=== PATIENT | female | born 1950 | race Caucasian/White ===

== ENCOUNTER 2017-10-04 21:23 | Day surgery (SDC) | payer OTHER ==
[~2017-10-04] VITALS: Ht 160 cm; Wt 59.5 kg
[~2017-10-04 21:23] MED LIST: AMOXICILLIN500 M1 PO; CHERATUSSIN AC473 ML PO; CYMBALTA60 MG PO; METFORMIN HCL500 MG PO; MUCINEX DM ER1 EACH PO; NEURONTIN600 MG PO; NORTRIPTYLINE HCL; XANAX0.5 MG PO; ZYRTEC; lovastatin; nortriptyline; simvastatin
[2017-10-04 22:00] LABS: BASOPHIL (%) 0.4 % (0-1); EOSINOPHIL (%) 0.1 % (0-5); HEMATOCRIT 26.8 % (36.0-46.0); HEMOGLOBIN 8.9 G/DL (11.9-15.5); IMMATURE GRANULOCYTE (%) 0.4 % (0.0-0.7); LYMPHOCYTE (%) 19.4 % (15-42); LYMPHOCYTE COUNT 1.4 K/uL (1.0-2.8); MCH 32.5 PG (29.0-34.0); MCHC 33.2 G/DL (30.0-36.0); MCV 97.8 FL (83-99); MONOCYTE (%) 6.1 % (3-12); MONOCYTE COUNT 0.4 K/uL (0-0.8); NEUTROPHIL (%) 73.6 % (45-76); NEUTROPHIL COUNT 5.1 K/uL (1.8-6.4); PLATELET COUNT 231 K/uL (156-360); RBC DIS.WIDTH-CV 13.2 % (11.8-14.6); RBC DIS.WIDTH-SD 47.2 % (39-53); RED BLOOD COUNT 2.74 M/uL (3.80-5.20)
[2017-10-04 22:04] LABS: CHLORIDE 109 mEq/L (99-109); POTASSIUM 4.5 mEq/L (3.7-5.4); SODIUM 136 mEq/L (136-147)
[2017-10-04 22:06] LABS: GLUCOSE 242 mg/dL (70-99)
[2017-10-04 22:10] LABS: CREATININE 0.9 mg/dL (0.6-1.3); GFR ESTIMATE (CALCULATED) > 59 mL/min/
[2017-10-04 22:11] LABS: UREA NITROGEN (BUN) 32 mg/dL (9-23)
[2017-10-05] VITALS (12 sets, daily range): BP systolic 83–151; BP diastolic 44–67
[2017-10-05 06:09] LABS: CHLORIDE 114 MEQ/L (99-109); CREATININE 0.7 MG/DL (0.6-1.3); GFR ESTIMATE (CALCULATED) > 59 mL/min/; GLUCOSE 202 mg/dL (70-99); HEMATOCRIT 18.6 % (36.0-46.0); MCH 32.6 PG (29.0-34.0); MCHC 32.8 G/DL (30.0-36.0); MCV 99.5 FL (83-99); PLATELET COUNT 179 K/uL (156-360); POTASSIUM 3.8 MEQ/L (3.7-5.4); RBC DIS.WIDTH-CV 13.2 % (11.8-14.6); RBC DIS.WIDTH-SD 47.8 % (39-53); SODIUM 137 MEQ/L (136-147); UREA NITROGEN (BUN) 26 mg/dL (9-23); WHITE BLOOD COUNT 5.9 K/uL (4.1-10.2)
[2017-10-05 06:19] LABS: HEMOGLOBIN 6.1 G/DL (11.9-15.5); RED BLOOD COUNT 1.87 M/uL (3.80-5.20)
[2017-10-05] MEDS ORDERED: LYRICA50 MG PO (09:38)
[2017-10-05] MEDS ORDERED: TROKENDI XR50 MG PO (09:38)
[2017-10-05] MEDS ORDERED: BENZONATATE200 MG PO (09:39)
[2017-10-05] MEDS ORDERED: PROAIR HFA8.5 GM IH (09:40)
[2017-10-05] MEDS ORDERED: LOSARTAN POTASS25 MG PO (09:41)
[2017-10-05] MEDS ORDERED: IBUPROFEN800 MG PO (09:41)
[2017-10-05] MEDS ORDERED: CYCLOBENZAPRINE10 MG PO (09:42)
[2017-10-05] MEDS ORDERED: EZETIMIBE10 MG PO (09:42)
[2017-10-05] MEDS ORDERED: SINGULAIR10 MG PO (09:43)
[2017-10-05] MEDS ORDERED: MUCINEX FAST-M1 EAC2 PO (09:45)
[2017-10-05] MEDS ORDERED: GUMMI BEAR MUL1 EACH PO (09:47)
[2017-10-05 18:48] LABS: BASOPHIL (%) 0.6 % (0-1); EOSINOPHIL (%) 0.4 % (0-5); HEMATOCRIT 25.9 % (36.0-46.0); HEMOGLOBIN 8.3 G/DL (11.9-15.5); IMMATURE GRANULOCYTE (%) 0.2 % (0.0-0.7); LYMPHOCYTE (%) 24.3 % (15-42); LYMPHOCYTE COUNT 1.3 K/uL (1.0-2.8); MCH 30.1 PG (29.0-34.0); MCV 93.8 FL (83-99); MONOCYTE (%) 8.3 % (3-12); MONOCYTE COUNT 0.5 K/uL (0-0.8); NEUTROPHIL (%) 66.2 % (45-76); NEUTROPHIL COUNT 3.6 K/uL (1.8-6.4); PLATELET COUNT 171 K/uL (156-360); RBC DIS.WIDTH-CV 15.9 % (11.8-14.6); RBC DIS.WIDTH-SD 54.3 % (39-53); RED BLOOD COUNT 2.76 M/uL (3.80-5.20); WHITE BLOOD COUNT 5.4 K/uL (4.1-10.2)
[2017-10-06 00:28] VITALS: BP 164/67
[2017-10-06 07:16] LABS: BASOPHIL (%) 0.6 % (0-1); EOSINOPHIL (%) 0.6 % (0-5); HEMATOCRIT 26.7 % (36.0-46.0); HEMOGLOBIN 8.9 G/DL (11.9-15.5); IMMATURE GRANULOCYTE (%) 0.4 % (0.0-0.7); LYMPHOCYTE (%) 25.5 % (15-42); LYMPHOCYTE COUNT 1.3 K/uL (1.0-2.8); MCH 30.9 PG (29.0-34.0); MCHC 33.3 G/DL (30.0-36.0); MCV 92.7 FL (83-99); MONOCYTE (%) 9.6 % (3-12); MONOCYTE COUNT 0.5 K/uL (0-0.8); NEUTROPHIL (%) 63.3 % (45-76); NEUTROPHIL COUNT 3.1 K/uL (1.8-6.4); PLATELET COUNT 171 K/uL (156-360); RBC DIS.WIDTH-CV 16.8 % (11.8-14.6); RBC DIS.WIDTH-SD 57.3 % (39-53); RED BLOOD COUNT 2.88 M/uL (3.80-5.20); WHITE BLOOD COUNT 4.9 K/uL (4.1-10.2)
[2017-10-06] MEDS ORDERED: HYDROCODON-ACE1 EAC7 PO (07:26)
[2017-10-06 08:43] VITALS: BP 108/55
[2017-10-06 11:12] VITALS: BP 142/62
== END 2017-10-06 12:35 | disposition home or self-care (01) ==
LOC: EME → EDBD 21:23 → SDC 23:31 → EME 23:31 → ENRESERV 10-05 00:26 → 2SOUTH 10-05 00:30 → 3EAST 10-05 00:30 → ENRESERV 10-05 00:47 → 3EAST 10-05 01:47 → ENPENDDIS 10-06 07:25 → 3EAST 10-06 12:35
PROVIDERS: Emergency Medicine; Surgery
PROC: 04QK0ZZ Repair Right Femoral Artery, Open Approach (ICD-10-PCS; principal; 2017-10-05)
PROC: 0JCN0ZZ Extirpation of Matter from Right Lower Leg Subcutaneous Tissue and Fascia, Open Approach (ICD-10-PCS; principal; 2017-10-05)
DX: I97.638 Postprocedural hematoma of a circulatory system organ or structure following other circulatory system procedure (principal); I97.618 Postprocedural hemorrhage of a circulatory system organ or structure following other circulatory system procedure; Y83.8 Other surgical procedures as the cause of abnormal reaction of the patient, or of later complication, without mention of misadventure at the time of the procedure; I10 Essential (primary) hypertension; E11.51 Type 2 diabetes mellitus with diabetic peripheral angiopathy without gangrene; F17.210 Nicotine dependence, cigarettes, uncomplicated; Z88.0 Allergy status to penicillin; Z79.84 Long term (current) use of oral hypoglycemic drugs
CPT/HCPCS: 74174; 80048; 82948; 85025; 85027; 85610; 85730; 86850; 86900; 86901; 86920; 99281; 99285; G0378; G8978 GP CI; G8979 GP CH; J0690; J1644; J1815; J2250; J2720; J3010; J7040; J7120; P9016

== ENCOUNTER 2017-12-13 16:17 | Emergency (ER) | payer OTHER ==
[~2017-12-13] VITALS: Ht 160 cm; Wt 53.1 kg
[~2017-12-13 16:17] MED LIST changes: +BENZONATATE200 MG PO; +CYCLOBENZAPRINE10 MG PO; +EZETIMIBE10 MG PO; +GUMMI BEAR MUL1 EACH PO; +HYDROCODON-ACE1 EAC7 PO; +IBUPROFEN800 MG PO; +LOSARTAN POTASS25 MG PO; +LYRICA50 MG PO; +MUCINEX FAST-M1 EAC2 PO; +PROAIR HFA8.5 GM IH; +SINGULAIR10 MG PO; +TROKENDI XR50 MG PO
[2017-12-13 19:21] VITALS: BP 158/79
== END 2017-12-13 19:26 | disposition home or self-care (01) ==
LOC: EME 16:17
DX: S00.81XA Abrasion of other part of head, initial encounter (principal); S80.212A Abrasion, left knee, initial encounter; S60.812A Abrasion of left wrist, initial encounter; R26.9 Unspecified abnormalities of gait and mobility; S02.2XXA Fracture of nasal bones, initial encounter for closed fracture; W18.30XA Fall on same level, unspecified, initial encounter; Z79.02 Long term (current) use of antithrombotics/antiplatelets; E78.5 Hyperlipidemia, unspecified; I10 Essential (primary) hypertension; J45.909 Unspecified asthma, uncomplicated; Z79.84 Long term (current) use of oral hypoglycemic drugs; Z88.0 Allergy status to penicillin; F17.200 Nicotine dependence, unspecified, uncomplicated
CPT/HCPCS: 70450; 70486; 99281; 99285